=== PATIENT | female | born 1975 | race Caucasian/White ===

== ENCOUNTER 2017-01-24 11:25 | Inpatient (IN) | payer BC, MEDICAID ==
[~2017-01-24] VITALS: Ht 175.3 cm; Wt 95.0 kg
[2017-01-24] MEDS ORDERED: SODIUM CHLORIDE 0.9% 1,000 ML IV ONE ×2 (11:47→13:19)
[2017-01-24] MEDS ORDERED: THIAMINE 100 MG in SODIUM CHLORIDE 0.9% 50 ML IVPB ONE (12:00)
[2017-01-24] MEDS ORDERED: SODIUM CHLORIDE 0.9% 1,000ML IVBOLUS ONE (12:00)
[2017-01-24] MEDS ORDERED: SODIUM CHLORIDE FLUSH 10ML SYR IVF ONE (12:00)
[2017-01-24] MEDS ORDERED: ONDANSETRON 2MG/ML, 2ML IVPush ONE (12:00)
[2017-01-24 12:18] LABS: HEMOGLOBIN 12.7 g/dL (11.7-16.4); WHITE BLOOD COUNT 6.8 x10^3/uL (3.4-10)
[2017-01-24 12:25] LABS: ASPARTATE AMINO TRANSFERASE 494 U/L (15-37); BLOOD UREA NITROGEN 1 mg/dL (7-18)
[2017-01-24] MEDS ORDERED: ONDANSETRON 2MG/ML, 2ML ONE (12:25)
[2017-01-24] MEDS ORDERED: LORazepam 2 MG/ML, 1ML ONE (12:25)
[2017-01-24] MEDS: LORazepam 2 MG/ML, 1ML IVPush PRN ×2 (12:32→16:09)
[2017-01-24] MEDS ORDERED: POTASSIUM CHLORIDE 40 MEQ in SODIUM CHLORIDE 0.9% 1,000 ML IV ONE (12:40)
[2017-01-24] MEDS ORDERED: OMNIPAQUE 350 MG/ML, 100ML BOTTLE ONE (13:08)
[2017-01-24] MEDS ORDERED: SODIUM CHLORIDE FLUSH 10ML SYR IVF PRN (13:30)
[2017-01-24] MEDS ORDERED: LORazepam 1MG TABLET PO PRN ×3 (14:30)
[2017-01-24] MEDS ORDERED: LORazepam 2 MG/ML, 1ML IV PRN ×4 (14:30)
[2017-01-24] MEDS: SODIUM CHLORIDE 0.9% 1,000 ML IV SCH (14:35)
[2017-01-24] MEDS ORDERED: LORazepam 2 MG/ML, 1ML IVPush PRN (15:00)
[2017-01-24] MEDS ORDERED: TRAZODONE 50MG TABLET PO PRN (15:00)
[2017-01-24 15:51] VITALS: BP 118/83
[2017-01-24] MEDS ORDERED: POTASSIUM PHOSPHATE 22 MEQ in SODIUM CHLORIDE 0.9% 500 ML IV ONE (16:00)
[2017-01-24] MEDS ORDERED: MAGNESIUM SULFATE PMX 4GM/100M 100 ML IV ONE (16:00)
[2017-01-24] MEDS: HYDROmorphone 2 MG/ML, 1ML IVPush PRN ×4 (16:32→21:31)
[2017-01-24] MEDS: CHLORDIAZEPOXIDE 5 MG CAPSULE PO SCH ×2 (16:48→22:44)
[2017-01-24] MEDS: PROMETHAZINE 25 MG/ML, 1ML IM PRN ×2 (16:48→21:05)
[2017-01-24] MEDS: ENOXAPARIN 40 MG/0.4 ML SQ SCH (16:49)
[2017-01-24 19:56] VITALS: BP 130/93
[2017-01-24] MEDS: FOLIC ACID IV SCH (20:49)
[2017-01-24] MEDS: [UNRECOGNIZED DRUG - OTHER] IV SCH (20:49)
[2017-01-24] MEDS: POTASSIUM CHLORIDE IV SCH (20:49)
[2017-01-24] MEDS: MAGNESIUM SULFATE IV SCH (20:49)
[2017-01-24] MEDS: THIAMINE IV SCH (20:49)
[2017-01-24] MEDS: LORazepam 2 MG/ML, 1ML IV PRN (23:24)
[2017-01-25] MEDS: HYDROmorphone 2 MG/ML, 1ML IVPush PRN ×7 (01:35→22:00)
[2017-01-25] MEDS: SODIUM CHLORIDE 0.9% 1,000 ML IV SCH ×3 (01:37→17:18)
[2017-01-25] MEDS: LORazepam 2 MG/ML, 1ML IV PRN (01:58)
[2017-01-25 03:00] VITALS: BP 106/76
[2017-01-25 05:34] LABS: ASPARTATE AMINO TRANSFERASE 376 U/L (15-37); BLOOD UREA NITROGEN 5 mg/dL (7-18)
[2017-01-25] MEDS: CHLORDIAZEPOXIDE 5 MG CAPSULE PO SCH ×2 (06:10→11:30)
[2017-01-25 06:31] LABS: HEMATOCRIT 30.8 % (34.6-47.8); HEMOGLOBIN 10.3 g/dL (11.7-16.4); WHITE BLOOD COUNT 5.7 x10^3/uL (3.4-10)
[2017-01-25 06:41] VITALS: BP 108/72
[2017-01-25] MEDS: PANTOPRAZOLE 40 MG IV IVPush SCH (08:14)
[2017-01-25] MEDS ORDERED: POTASSIUM CHLORIDE 40 MEQ in SODIUM CHLORIDE 0.9% 500 ML IV ONE (12:30)
[2017-01-25 12:41] VITALS: BP 112/78
[2017-01-25] MEDS: ENOXAPARIN 40 MG/0.4 ML SQ SCH (13:21)
[2017-01-25] MEDS ORDERED: TRAZ100T15 PO (13:48)
[2017-01-25] MEDS ORDERED: ESCI20TA10 PO (13:48)
[2017-01-25] MEDS: LORazepam 0.5MG TABLET PO PRN (17:22)
[2017-01-25] MEDS: LORazepam 1MG TABLET PO PRN (21:07)
[2017-01-25 21:25] VITALS: BP 126/87
[2017-01-25] MEDS: [UNRECOGNIZED DRUG - OTHER] IV SCH (22:01)
[2017-01-25] MEDS: THIAMINE IV SCH (22:01)
[2017-01-25] MEDS: FOLIC ACID IV SCH (22:01)
[2017-01-25] MEDS: POTASSIUM CHLORIDE IV SCH (22:01)
[2017-01-25] MEDS: MAGNESIUM SULFATE IV SCH (22:01)
[2017-01-26 01:42] VITALS: BP 127/88
[2017-01-26] MEDS: LORazepam 1MG TABLET PO PRN (01:44)
[2017-01-26] MEDS ORDERED: FENTANYL PF 100 MCG/2ML IVPush PRN (04:30)
[2017-01-26] MEDS ORDERED: FENTANYL PF 100 MCG/2ML ONE (05:01)
[2017-01-26 05:08] LABS: HEMATOCRIT 28.8 % (34.6-47.8); HEMOGLOBIN 9.4 g/dL (11.7-16.4); WHITE BLOOD COUNT 5.4 x10^3/uL (3.4-10)
[2017-01-26 05:11] LABS: ASPARTATE AMINO TRANSFERASE 271 U/L (15-37); BLOOD UREA NITROGEN 6 mg/dL (7-18)
[2017-01-26] MEDS: CALCIUM CARBONATE 500 MG TAB.CHEW PO PRN ×2 (05:21→23:51)
[2017-01-26 06:52] VITALS: BP 132/89
[2017-01-26] MEDS: PANTOPRAZOLE 40 MG IV IVPush SCH (08:30)
[2017-01-26] MEDS: SODIUM CHLORIDE 0.9% 1,000 ML IV SCH (08:31)
[2017-01-26] MEDS: HYDROmorphone 2 MG/ML, 1ML IVPush PRN (08:31)
[2017-01-26] MEDS: FAMOTIDINE 20 MG TABLET PO SCH ×2 (08:32→22:07)
[2017-01-26] MEDS: CEFTRIAXONE PMX 1GM/50ML 50 ML IV SCH (10:57)
[2017-01-26] MEDS: morphine SULFATE 10 MG/ML, 1ML IVPush PRN ×3 (12:27→22:07)
[2017-01-26] MEDS: POTASSIUM CHLORIDE 20 MEQ, MAGNESIUM SULFATE 1 GM, MVI ADULT 10 ML, THIAMINE 100 MG, FO... IV SCH (12:28)
[2017-01-26] MEDS: ENOXAPARIN 40 MG/0.4 ML SQ SCH (15:26)
[2017-01-26 17:37] VITALS: BP 137/93
[2017-01-26 19:36] VITALS: BP 131/92
[2017-01-26] MEDS ORDERED: MORPHINE SULFATE 4 MG/ML, 1ML ONE (22:00)
[2017-01-26] MEDS: LORazepam 0.5MG TABLET PO PRN (22:07)
[2017-01-27 01:32] VITALS: BP 144/109
[2017-01-27] MEDS ORDERED: LORazepam 0.5MG TABLET PO PRN (02:30)
[2017-01-27] MEDS: morphine SULFATE 10 MG/ML, 1ML IVPush PRN ×5 (02:32→21:18)
[2017-01-27] MEDS: SODIUM CHLORIDE 0.9% 1,000 ML IV SCH ×3 (02:32→15:53)
[2017-01-27 05:21] LABS: ASPARTATE AMINO TRANSFERASE 245 U/L (15-37); BLOOD UREA NITROGEN 3 mg/dL (7-18)
[2017-01-27 07:35] VITALS: BP 125/90
[2017-01-27] MEDS: FAMOTIDINE 20 MG TABLET PO SCH ×2 (08:57→21:17)
[2017-01-27] MEDS: PANTOPRAZOLE 40 MG IV IVPush SCH (08:57)
[2017-01-27] MEDS: CEFTRIAXONE PMX 1GM/50ML 50 ML IV SCH (08:57)
[2017-01-27] MEDS: POTASSIUM CHLORIDE 20 MEQ, MAGNESIUM SULFATE 1 GM, MVI ADULT 10 ML, THIAMINE 100 MG, FO... IV SCH (10:06)
[2017-01-27 12:00] VITALS: BP 134/97
[2017-01-27] MEDS: ENOXAPARIN 40 MG/0.4 ML SQ SCH (13:27)
[2017-01-27 15:58] VITALS: BP 129/93
[2017-01-27] MEDS ORDERED: FLUCONAZOLE 100 MG TABLET PO ONE (19:00)
[2017-01-27 20:01] VITALS: BP 124/88
[2017-01-27] MEDS ORDERED: LOPERAMIDE 2 MG CAPSULE PO ONE (20:30)
[2017-01-27] MEDS: ONDANSETRON 2MG/ML, 2ML IV PRN (21:18)
[2017-01-28] MEDS: morphine SULFATE 10 MG/ML, 1ML IVPush PRN ×5 (01:28→20:20)
[2017-01-28 02:59] VITALS: BP 124/87
[2017-01-28 05:21] LABS: BLOOD UREA NITROGEN 3 mg/dL (7-18)
[2017-01-28 05:23] LABS: ASPARTATE AMINO TRANSFERASE 105 U/L (15-37)
[2017-01-28] MEDS: SODIUM CHLORIDE 0.9% 1,000 ML IV SCH ×3 (05:36→21:30)
[2017-01-28] MEDS: CALCIUM CARBONATE 500 MG TAB.CHEW PO PRN (06:08)
[2017-01-28] MEDS: PANTOPRAZOLE 40 MG IV IVPush SCH (08:08)
[2017-01-28] MEDS: FAMOTIDINE 20 MG TABLET PO SCH ×2 (08:09→20:18)
[2017-01-28 08:14] VITALS: BP 122/88
[2017-01-28] MEDS: CEFTRIAXONE PMX 1GM/50ML 50 ML IV SCH (08:59)
[2017-01-28] MEDS ORDERED: FLUCONAZOLE 100 MG TABLET PO ONE (09:00)
[2017-01-28] MEDS: POTASSIUM CHLORIDE 20 MEQ, MAGNESIUM SULFATE 1 GM, MVI ADULT 10 ML, THIAMINE 100 MG, FO... IV SCH (09:53)
[2017-01-28] MEDS: ONDANSETRON 2MG/ML, 2ML IV PRN ×2 (10:04→20:20)
[2017-01-28] MEDS: KETOROLAC 30 MG/1 ML IVPush PRN ×2 (10:36→17:59)
[2017-01-28] MEDS: LOPERAMIDE 2 MG CAPSULE PO PRN (10:57)
[2017-01-28 13:51] VITALS: BP 113/77
[2017-01-28] MEDS: ENOXAPARIN 40 MG/0.4 ML SQ SCH (14:30)
[2017-01-28] MEDS: LORazepam 0.5MG TABLET PO PRN (16:02)
[2017-01-28 19:45] VITALS: BP 121/84
[2017-01-29 02:35] VITALS: BP 138/92
[2017-01-29] MEDS: SODIUM CHLORIDE 0.9% 1,000 ML IV SCH ×3 (04:35→21:10)
[2017-01-29] MEDS: CALCIUM CARBONATE 500 MG TAB.CHEW PO PRN (04:35)
[2017-01-29] MEDS: morphine SULFATE 10 MG/ML, 1ML IVPush PRN ×4 (04:35→22:23)
[2017-01-29 05:22] LABS: BLOOD UREA NITROGEN 1 mg/dL (7-18)
[2017-01-29 05:23] LABS: HEMATOCRIT 33.3 % (34.6-47.8); HEMOGLOBIN 10.9 g/dL (11.7-16.4); WHITE BLOOD COUNT 4.1 x10^3/uL (3.4-10)
[2017-01-29 05:27] LABS: ASPARTATE AMINO TRANSFERASE 81 U/L (15-37)
[2017-01-29] MEDS: KETOROLAC 30 MG/1 ML IVPush PRN ×4 (07:49→19:51)
[2017-01-29] MEDS: PANTOPRAZOLE 40 MG IV IVPush SCH (07:49)
[2017-01-29 08:11] VITALS: BP 130/88
[2017-01-29] MEDS: FAMOTIDINE 20 MG TABLET PO SCH ×2 (08:58→19:50)
[2017-01-29] MEDS: CEFTRIAXONE PMX 1GM/50ML 50 ML IV SCH (08:58)
[2017-01-29] MEDS: LOPERAMIDE 2 MG CAPSULE PO PRN ×2 (12:23→19:51)
[2017-01-29 12:57] VITALS: BP 115/83
[2017-01-29] MEDS: ENOXAPARIN 40 MG/0.4 ML SQ SCH (14:59)
[2017-01-29 20:00] VITALS: BP 117/79
[2017-01-30 04:17] VITALS: BP 123/87
[2017-01-30] MEDS: morphine SULFATE 10 MG/ML, 1ML IVPush PRN (05:16)
[2017-01-30] MEDS: SODIUM CHLORIDE 0.9% 1,000 ML IV SCH ×2 (05:16→14:12)
[2017-01-30 05:51] LABS: ASPARTATE AMINO TRANSFERASE 61 U/L (15-37)
[2017-01-30 05:59] LABS: BLOOD UREA NITROGEN < 1 mg/dL (7-18)
[2017-01-30 07:17] VITALS: BP 102/72
[2017-01-30] MEDS: PANTOPRAZOLE 40 MG IV IVPush SCH (09:01)
[2017-01-30] MEDS: FAMOTIDINE 20 MG TABLET PO SCH ×2 (09:01→20:44)
[2017-01-30] MEDS: CEFTRIAXONE PMX 1GM/50ML 50 ML IV SCH (10:06)
[2017-01-30] MEDS ORDERED: metroNIDAZOLE 500 MG TABLET PO ONE (10:30)
[2017-01-30] MEDS ORDERED: FLUCONAZOLE 100 MG TABLET PO ONE (10:30)
[2017-01-30] MEDS: LOPERAMIDE 2 MG CAPSULE PO PRN (11:25)
[2017-01-30] MEDS ORDERED: PANTOPRAZOLE MC SCH (11:30)
[2017-01-30] MEDS ORDERED: FAMOTIDINE MC SCH (11:30)
[2017-01-30] MEDS ORDERED: LORazepam 1MG TABLET PO PRN (11:30)
[2017-01-30 14:00] VITALS: BP 125/86
[2017-01-30] MEDS: ENOXAPARIN 40 MG/0.4 ML SQ SCH (14:11)
[2017-01-30] MEDS: ONDANSETRON 2MG/ML, 2ML IV PRN ×2 (14:17→20:50)
[2017-01-30] MEDS: PROMETHAZINE 25 MG/ML, 1ML IM PRN (18:03)
[2017-01-30 18:55] VITALS: BP 147/96
[2017-01-31] MEDS: SODIUM CHLORIDE 0.9% 1,000 ML IV SCH (01:22)
[2017-01-31 01:28] VITALS: BP 152/96
[2017-01-31] MEDS: LOPERAMIDE 2 MG CAPSULE PO PRN (02:27)
[2017-01-31] MEDS: PROMETHAZINE 25 MG/ML, 1ML IM PRN (02:27)
[2017-01-31 05:22] LABS: HEMATOCRIT 30.3 % (34.6-47.8); HEMOGLOBIN 9.9 g/dL (11.7-16.4); WHITE BLOOD COUNT 4.4 x10^3/uL (3.4-10)
[2017-01-31 05:40] LABS: ASPARTATE AMINO TRANSFERASE 43 U/L (15-37); BLOOD UREA NITROGEN 2 mg/dL (7-18)
[2017-01-31 07:23] VITALS: BP 117/76
[2017-01-31] MEDS ORDERED: ONDANSETRON 4 MG TABLET PO PRN (08:00)
[2017-01-31] MEDS: FAMOTIDINE 20 MG TABLET PO SCH ×2 (08:45→21:40)
[2017-01-31] MEDS ORDERED: CEFDINIR 300 MG CAPSULE PO SCH (09:00)
[2017-01-31] MEDS ORDERED: morphine SULFATE/PF 0.5 MG/ML, 10ML IV PRN (13:00)
[2017-01-31] MEDS: KETOROLAC 30 MG/1 ML IVPush PRN (13:49)
[2017-01-31] MEDS: CEFTRIAXONE PMX 1GM/50ML 50 ML IV SCH (13:49)
[2017-01-31] MEDS: LACTOBACILLUS CHEW TABLET PO SCH ×3 (13:49→21:24)
[2017-01-31] MEDS: POTASSIUM CHLORIDE 10 MEQ in LACTATED RINGERS 1,000 ML IV SCH ×2 (13:49→23:36)
[2017-01-31] MEDS: ENOXAPARIN 40 MG/0.4 ML SQ SCH (13:50)
[2017-01-31] MEDS: ONDANSETRON 2MG/ML, 2ML IVPush SCH ×3 (13:50→21:24)
[2017-01-31] MEDS: METOCLOPRAMIDE 5 MG/ML, 2ML IVPush SCH ×2 (13:50→18:26)
[2017-01-31 14:18] VITALS: BP 117/84
[2017-01-31 19:05] VITALS: BP 131/97
[2017-01-31] MEDS: MORPHINE SULFATE 4 MG/ML, 1ML IV PRN (21:24)
[2017-02-01] MEDS: METOCLOPRAMIDE 5 MG/ML, 2ML IVPush SCH ×3 (01:26→12:25)
[2017-02-01] MEDS: ONDANSETRON 2MG/ML, 2ML IVPush SCH ×4 (01:27→12:25)
[2017-02-01] MEDS: CEFTRIAXONE PMX 1GM/50ML 50 ML IV SCH ×2 (01:27→13:36)
[2017-02-01 01:57] VITALS: BP_SYST 147; BP_SYST 96; BP_DIAS 59; BP_DIAS 97
[2017-02-01] MEDS: LOPERAMIDE 2 MG CAPSULE PO PRN ×2 (02:38→15:13)
[2017-02-01] MEDS: MORPHINE SULFATE 4 MG/ML, 1ML IV PRN (05:30)
[2017-02-01 06:14] LABS: HEMATOCRIT 29.3 % (34.6-47.8); HEMOGLOBIN 9.7 g/dL (11.7-16.4)
[2017-02-01 06:23] LABS: ASPARTATE AMINO TRANSFERASE 36 U/L (15-37); BLOOD UREA NITROGEN 3 mg/dL (7-18)
[2017-02-01 07:40] VITALS: BP 118/83
[2017-02-01] MEDS: LACTOBACILLUS CHEW TABLET PO SCH (07:45)
[2017-02-01] MEDS: FAMOTIDINE 20 MG TABLET PO SCH (07:45)
[2017-02-01] MEDS: POTASSIUM CHLORIDE 10 MEQ in LACTATED RINGERS 1,000 ML IV SCH (08:53)
[2017-02-01] MEDS ORDERED: ONDA4TAB12 PO (09:26)
[2017-02-01] MEDS ORDERED: OXYC5TAB3 PO (09:26)
[2017-02-01] MEDS ORDERED: METO10TA82 PO (09:26)
[2017-02-01] MEDS ORDERED: LOPE2CAP PO (09:26)
[2017-02-01 12:35] VITALS: BP 103/71
[2017-02-01] MEDS: ENOXAPARIN 40 MG/0.4 ML SQ SCH (14:30)
== END 2017-02-01 16:17 | disposition home or self-care (01) | DRG 432 ==
LOC: ED 11:55 → EDIP 13:19 → 4EST 15:36
PROVIDERS: ADMIT Internal Medicine
DX: K70.10 Alcoholic hepatitis without ascites (principal); K85.20 Alcohol induced acute pancreatitis without necrosis or infection; E43 Unspecified severe protein-calorie malnutrition; E87.2 Acidosis; R56.9 Unspecified convulsions; E87.1 Hypo-osmolality and hyponatremia; A59.01 Trichomonal vulvovaginitis; F10.239 Alcohol dependence with withdrawal, unspecified; N39.0 Urinary tract infection, site not specified; K76.0 Fatty (change of) liver, not elsewhere classified; E87.6 Hypokalemia; B96.20 Unspecified Escherichia coli [E. coli] as the cause of diseases classified elsewhere; K21.9 Gastro-esophageal reflux disease without esophagitis; F32.9 Major depressive disorder, single episode, unspecified; E66.9 Obesity, unspecified; F41.9 Anxiety disorder, unspecified; D64.9 Anemia, unspecified; Z91.14 Patient's other noncompliance with medication regimen; Z91.19 Patient's noncompliance with other medical treatment and regimen; Z98.84 Bariatric surgery status; Z68.30 Body mass index [BMI] 30.0-30.9, adult; Z90.49 Acquired absence of other specified parts of digestive tract; Z98.51 Tubal ligation status
CPT/HCPCS: 36415; 74177; 76700; 80053; 80061; 80074; 80307; 81001; 83605; 83690; 83735; 84100; 84703; 85025; 85610; 87046; 87077; 87086; 87186; 87252; 87324; 87491; 87591; 87899; 93005; 96374; J0696; J1170; J1650; J1885; J2405; J2550; J3010; J3411; J3475; J3480; Q0162; Q9967; C9113; J2060; J2270; J2765; J7030; J7040; J7120